=== PATIENT | male | born 1960 | race Caucasian/White ===

== ENCOUNTER 2018-01-14 14:51 | Emergency (ER) | payer SELFPAY ==
--- NOTE | 2018-01-14 15:07 | ED Physician Documentation ---
General Adult - HISTORIAN Historian: child (son) - HPI Stated Complaint: stroke? Chief Complaint: General Adult Additional Information: Son called patient at 1344 today and he says patient could not form sentences, words. Gait is unsteady. Last known well time, 0800 today. Had similar symptoms 2 1/2 months ago when he was admitted to [facility] for ETOOH with drawal. Son says patient has not had any ETOH since and had been doing better. 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 No other modifying factors or associated events. Patient cannot contribute in any way to CC, HPI, ROS. - ROS CONST: other (unknown) - PAST HX Past History: other (ETOH; son malick pt is a drunk) Allergies/Adverse Reactions: Allergies Allergy/AdvReac Type Severity Reaction Status Date / Time No Known Allergies Allergy Verified 01/14/18 15:13 Home Medications: Ambulatory Orders Medication Instructions Recorded NK 01/14/18 - SOCIAL HX Smoking History: cigarettes Alcohol Use: heavy - FAMILY HX Family History: No - REVIEWED ASSESSMENTS Nursing Assessment Reviewed: Yes Vitals Reviewed: Yes Progress - Progress Progress: Report Submission Date: Jan 14, 2018 3:24:17 PM CDT Patient Study Name: INGA WOODS Date: Jan 14, 2018 3:04:35 PM CDT Modality Type: DX Gender: M Description: CHEST : 62 Institution: [facility] Physician: GLENDA PAREDES - ROYCE Examination: Portable chest History: Evaluate lungs Comparison exam: Wall none available. Findings: Single view of the chest demonstrates a normal cardiac and mediastinal silhouette. Mildly tortuous aorta. Lung [place] without focal infiltrate. No blunting of the costophrenic margins. Osseous structures are appropriate for age. Impression: No acute pulmonary process. Electronically signed on Jan 14, 2018 3:24:17 PM CDT by: Juan Jose Luna Report Submission Date: Jan 14, 2018 3:23:45 PM CDT Patient Study Name: INGA WOODS Date: Jan 14, 2018 3:06:09 PM CDT Modality Type: CT\SR Gender: M Description: CT BRAIN W/O CONTRAST : 62 Institution: [facility] Physician: GLENDA PAREDES Examination: CT head without contrast History: MENTAL STATUS CHANGES (Hx) Comparison exam: None available Technique: Noncontrast head CT protocol. Findings: Ventricles and sulci are prominent. Cerebrocerebellar parenchyma demonstrates periventricular low attenuation consistent with small vessel disease. No evidence for parenchymal hemorrhage. No evidence for mass or mass effect. No midline shift. No extra axial fluid collections. Partial visualization of the paranasal sinuses, mastoid air cells, orbits, skull and scalp without gross irregularity. Streak artifact from dental hardware. Impression: Age related changes. No acute parenchymal process. No hemorrhage. Electronically signed on Jan 14, 2018 3:23:45 PM CDT by: Juan Jose Luna Pt has occasional spontaneous and seemingly unproviked outbursts of a few words and laughing. 1620, spoke with Dr. Reese, IM, [facility], who is concerned for stroke, rather than encephalopathy, given the acute onset of symptoms and normal labs. 1627, spoke with Dr. Oviedo, neurology, [facility], who [id number] patient for transfer to [facility] ER. ED Results Lab/Radiology - Orders Orders: ED Orders Category Date Time Status Place IV Lock 1T Care 01/14/18 14:55 Ordered CHEST 1VIEW [RAD] Stat Exams 01/14/[address] BRAIN W/O CONTRAST Stat Exams 01/14/18 Ordered CBC/PLATELET/DIFF Routine Lab 01/14/18 Ordered CMP Routine Lab 01/14/18 Ordered PT-INR Routine Lab 01/14/18 Ordered URINALYSIS Routine Lab 01/14/18 Ordered General Adult Physical Exam - PHYSICAL EXAM GENERAL APPEARANCE: cannot cooperate with exam. when asked to elevate head, says he can. when asked for tongue protrusion, says ok, but doesn't. EENT: eye inspection normal (-3 mm), [place] NECK: normal inspection, supple RESPIRATORY: no resp distress, breath sounds normal CVS: reg rate & rhythm, heart sounds normal ABDOMEN: soft, normal bowel sounds, no distension, non-tender. No: hepatomegaly (but doesn't take deep breath when asked) BACK: normal inspection SKIN: warm/dry EXTREMITIES: non-tender, no evidence of injury, no edema, other (disstal biceps area bulge/rupture on left) NEURO: CN's nml as tested (doesn't cooperate with exam.), speech/cognition abnml, other (reflexes 2+ throughout. No asterixis.) Discharge Clincal Impression: Change in mental status Referrals: Primary Doctor,No [Primary Care Provider] - 2 Days Condition: Fair Disposition: 02 XFER SHT-TRM HOSP Decision to Admit: NO Decision Time: 16:28
[2018-01-14 15:22] LABS: BASOPHILS % 0.5 (0.0-1.5); EOSINOPHILS % 5.2 % (0.0-6.8); MEAN CORPUSCULAR HEMOGLOBIN 32.4 pg (28.0-34.0); MONOCYTES % 5.4 % (0.0-11.0); NEUTROPHILS # 6.8 # k/uL (1.4-7.7)
[2018-01-14 15:47] LABS: eGFR (Non-African) > 60
[2018-01-14 18:13] VITALS: BP 172/136
--- NOTE | 2018-01-14 19:44 | Diagnostic Imaging Report ---
GLENDA PAREDES [facility] [address] [facility] [address] [place] [address]. [id number] Report Submission Date: Jan 14, 2018 3:23:45 PM CDT Patient Study Name: INGA WOODS Date: Jan 14, 2018 3:06:09 PM CDT Modality Type: CT\SR Gender: M Description: CT BRAIN W/O CONTRAST : 62 Institution: [facility] Physician: GLENDA PAREDES Examination: CT head without contrast History: MENTAL STATUS CHANGES (Hx) Comparison exam: None available Technique: Noncontrast head CT protocol. Findings: Ventricles and sulci are prominent. Cerebrocerebellar parenchyma demonstrates periventricular low attenuation consistent with small vessel disease. No evidence for parenchymal hemorrhage. No evidence for mass or mass effect. No midline shift. No extra axial fluid collections. Partial visualization of the paranasal sinuses, mastoid air cells, orbits, skull and scalp without gross irregularity. Streak artifact from dental hardware. Impression: Age related changes. No acute parenchymal process. No hemorrhage. Electronically signed on Jan 14, 2018 3:23:45 PM CDT by: Juan Jose LEE
--- NOTE | 2018-01-14 19:45 | Diagnostic Imaging Report ---
GLENDA PAREDES [facility] [address] [facility] [address] [address] Report Submission Date: Jan 14, 2018 3:24:17 PM CDT Patient Study Name: INGA WOODS Date: Jan 14, 2018 3:04:35 PM CDT Modality Type: DX Gender: M Description: CHEST : 62 Institution: [facility] Physician: GLENDA PAREDES Examination: Portable chest History: Evaluate lungs Comparison exam: Wall none available. Findings: Single view of the chest demonstrates a normal cardiac and mediastinal silhouette. Mildly tortuous aorta. Lung [place] without focal infiltrate. No blunting of the costophrenic margins. Osseous structures are appropriate for age. Impression: No acute pulmonary process. Electronically signed on Jan 14, 2018 3:24:17 PM CDT by: Juan Jose LEE
[2018-01-15 13:18] LABS: APPEARANCE,URINE CLEAR (CLEAR); COLOR,URINE YELLOW (YELLOW); OCCULT BLOOD,URINE NEGATIVE (NEGATIVE); PH URINE 6.5 (5.0 - 8.0); UROBILINOGEN URINE 0.2 Eu (0.2-1.0)
[2018-01-15 13:19] LABS: CANNABINOIDS NEGATIVE ng/mL (< 50); METHYLENEDIOXYMETHAMPHETAMINE NEGATIVE ng/mL (<500)
== END 2018-01-14 17:23 | disposition short-term general hospital (02) ==
LOC: ED 14:51
DX: R41.82 Altered mental status, unspecified (principal)
CPT/HCPCS: 70450; 71045; 80053; 80320; 80377; 81002; 82140; 85025; 85610; 99284; G0480; G0481; S1016